=== PATIENT | female | born 1930 | race Caucasian/White ===

== ENCOUNTER 2016-12-26 11:18 | Emergency (ER) | payer MEDICARE, OTHER ==
[2016-12-26 11:42] VITALS: BMI 25.8
--- NOTE | 2016-12-26 11:49 | EDPRACDOC ---
- General Information Chief Complaint: Generalized Weakness Stated Complaint: GENERAL EVALUATION Time Seen by Provider: 12/26/16 11:33 Information Source: Patient, Family, Senior Living, [employer] Home Medications: Home Medications Oxybutynin [Ditropan] 5 mg PO 2100 09/14/14 Albuterol/Ipratropium Neb [Duoneb] 3 ml NEB Q8H 12/26/16 Calcium Carbonate/Vitamin D3 [Calcium 600 + Vit D 200 Tablet] 1 each PO MOTH 01/10 Cefdinir [Omnicef] 300 mg PO BID #20 cap 12/26/16 Cholecalciferol (Vitamin D3) [Vitamin D3] 2,000 unit PO 1700 12/26/16 Wfrlpuzaj-Gbgzrpgho-Voglfkun Suspension 5 ml PO QID 12/26/16 Ferrous Sulfate [Feosol] 325 mg PO 0900 12/26/16 Glucosam/Chond/Hyalu/Cf Borate [Move Free Joint Health Tablet] 1 each PO 0900 Guaifenesin-Dextromethorphan [Robitussin Dm] 10 ml PO Q6 PRN 12/26/16 House Supplement 1 each PO .TID W/MEALS 12/26/16 Hydroxyzine HCl 25 mg PO Q6H PRN 12/26/16 Levofloxacin [Levaquin] 750 mg PO DAILY 12/26/16 Levothyroxine Sodium [Levothroid] 50 mcg PO DAILY 12/26/16 Lorazepam [Ativan] 1 mg PO 2100 12/26/16 Meridian-3 Fatty Acids/Fish Oil [Fish Oil 1,000 mg Capsule] 1 each PO 0900 Oxycodone Immediate Release [Oxycodone Immediate Release (OxyIR)] 5 mg PO Q6H PRN 12/26/16 Pantoprazole Sodium [Protonix] 40 mg PO 0630 12/26/16 Rivaroxaban [Xarelto] 20 mg PO 0900 12/26/16 Sennosides/Docusate Sodium [Senokot-S Tablet] 1 each PO BID 12/26/16 Allergies/Adverse Reactions: Allergies Allergy/AdvReac Type Severity Reaction Status Date / Time Penicillins Allergy Rash-Genera Verified 12/26/16 11:40 lized - History of Present Illness Onset: weeks HPI: AT [place]; SEEN BY MID LEVEL THERE YESTERDAY. THOUGHT SHE MIGHT HAVE PNEUMONIA; SOME COUGH; WEARS OXYGEN AT ALL TIMES. IN LATE OCTOBER AT [facility] FOR SBO, ARF, PAF, HCAP; BEEN OUT NOW FOR SEVERAL WEEKS. SOME COUGH. FAMILY DOES NOT LIKE CURRENT SNF ; I TOLD THEM THEY WOULD NEED TO MAKE OTHER ARRANGEMENTS IF THEY FELT IT NECESSARY. Symptoms Started: Reports: Gradually Weakness: Bilateral: Generalized Symptoms: Reports: Weak Associated signs and symptoms:: Reports: None ED Past Medical History - History Reviewed Yes Nurses notes reviewed and agree except as marked - Patient Medical History Neurological History: Reports: Cerebrovascular Accident (2007) Cardiac History: Reports: Coronary Artery Disease, Hypercholesterolemia GI/ History: Reports: Gastroesophageal Reflux Musculoskeletal History: Reports: Arthritis Psychological History: Denies: Depression, Substance Use Disorder Surgical History: Reports: Hysterectomy, Other (Repair of abdominal aortic aneurysm, right rotator cuff repair. Abd surg) - Family Medical History Reports: Cancer (A sister who of metastatic breast cancer), Cardiac Disorders (Father had acute CO.). Denies: Hypertension, Diabetes, Stroke - Social Medical History Smoking Status: Current some day smoker Social History: Denies: Substance Use Disorder EDM Review of Systems - Review of Systems ROS Negative Except as Marked: Yes All systems reviewed and were negative except as marked - Physical Exam Constitutional: Alert (Awake), No apparent distress Oriented to: Time, Person, Place Last recorded Vital Signs: Last Vital Signs Temp 98.5 F 12/26/16 11:36 Pulse 87 12/26/16 11:36 Resp 16 12/26/16 11:36 BP 125/58 L 12/26/16 11:36 Pulse Ox 96 12/26/16 11:36 Oxygen Pulse Oxygen Saturation 96 O2 Device Oxygen Flow Rate Fraction of Inspired Oxygen ( FIO2) - HEENT Head: Normal ( normocephalic) Eye Exam: Normal (PERRL, EOMI, Sclera white) Oropharynx: Normal (Pharynx:Moist without exudate,Gums-no swelling) Tympanic Membrane: Normal ENT EAC: Normal TMJ: Normal Nose: No Symptoms Reported (septum midline) Neck: Normal (FROM, trachea at midline) - Respiratory/Cardiovascular Respiratory: Normal - CTA (BBS clear to auscultation without adventitious sounds ) Cardiovascular: Normal (RRR without murmur, gallop or rub) - GI Auscultation: Normal (NABS) Palpation: Normal (Soft,No rebound or guarding, non distended) Tenderness: Non tender Carolina's Sign: Negative - Musculoskeletal Back: Normal (Non-Tender) Extremities: Normal (Normal tone, Pulses 2+ No cyanosis or edema, FROM) - Integumentary Skin: Normal, Warm, Dry Lymphatics: Normal (no adenopathy) - Neurologic Memory Impaired: Normal Motor Function: Normal (Normal tone, Pulses 2+ No cyanosis or edema, FROM) Cranial Nerve: Normal (CN II-X11 intact sensation, strength 5/5) Cerebellar: Normal Mood Description: Normal Perception: Normal - Results 12/26/16 12:45 12/26/16 12:15 - EKG EKG #1 [place]: Normal Rhythm: NSR Block: None Hypertrophy: None ST: Normal Decision Time to Discharge: 12:49 - Departure Yes I personally saw and evaluated the patient. Disposition: Home Condition: Good Final Diagnosis: Attacks of weakness, UTI, CRI, ANEMIA Instructions: Urinary Tract Infection in Women (ED), Weakness (ED) Education/Counseling Given To: Patient, Family Member Education/Counseling Given Regarding: Diagnosis, Treatment, Prognosis Referrals: Aguilar Garcia MD [Primary Care Provider] - One Week Prescriptions: New Cefdinir [Omnicef] 300 mg PO BID #20 cap No Action Oxybutynin [Ditropan] 5 mg PO 2100 Sennosides/Docusate Sodium [Senokot-S Tablet] 1 each PO BID Pantoprazole Sodium [Protonix] 40 mg PO 0630 Oxycodone Immediate Release [Oxycodone Immediate Release (OxyIR)] 5 mg PO Q6H PRN PRN Reason: Pain Glucosam/Chond/Hyalu/Cf Borate [Move Free Joint Health Tablet] 1 each PO 0900 Levothyroxine Sodium [Levothroid] 50 mcg PO DAILY Levofloxacin [Levaquin] 750 mg PO DAILY Hydroxyzine HCl 25 mg PO Q6H PRN PRN Reason: Itching House Supplement 1 each PO .TID W/MEALS Meridian-3 Fatty Acids/Fish Oil [Fish Oil 1,000 mg Capsule] 1 each PO 0900 Guaifenesin-Dextromethorphan [Robitussin Dm] 10 ml PO Q6 PRN PRN Reason: Cough Ferrous Sulfate [Feosol] 325 mg PO 0900 Albuterol/Ipratropium Neb [Duoneb] 3 ml NEB Q8H Ivubrtaqk-Cvxomuszr-[id number] Suspension 5 ml PO QID Cholecalciferol (Vitamin D3) [Vitamin D3] 2,000 unit PO 1700 Lorazepam [Ativan] 1 mg PO 2100 Calcium Carbonate/Vitamin D3 [Calcium 600 + Vit D 200 Tablet] 1 each PO MOTH Rivaroxaban [Xarelto] 20 mg PO 0900
[2016-12-26 11:56] LABS: LEUKOCYTES/URINE 2+ (NEGATIVE); NITRITE/URINE NEG (NEGATIVE); RBC/URINE TNTC (0-5); URINE OCCULT BLOOD NEG (NEG/TRACE); WBC/URINE TNTC (0-5)
[2016-12-26 12:19] LABS: BEb -5.9 (+/- 2); TCO2 21.5 MMOL/L (23-27)
[2016-12-26 12:20] LABS: ABG Draw Site Right Brachial
--- NOTE | 2016-12-26 12:29 | DIRPT ---
CLINICAL DATA: Shortness of Breath, pneumonia EXAM: CHEST 2 VIEW COMPARISON: 12/13/2016 FINDINGS: Cardiomediastinal silhouette is stable. No pulmonary edema. Mild hyperinflation again noted. Streaky bilateral lower lobe atelectasis or residual infiltrate with improvement in aeration from prior exam. No pleural effusion. Osteopenia and mild degenerative changes thoracic spine. IMPRESSION: No pulmonary edema. Mild hyperinflation again noted. Streaky bilateral lower lobe atelectasis or residual infiltrate with improvement in aeration from prior exam. No pleural effusion. Electronically Signed By: Fabian Varner M.D. On: 12/26/2016 12:27
[2016-12-26] MEDS ORDERED: CEFDINIR 300 MG CAP PO ONE (12:40)
[2016-12-26 12:54] LABS: AUTOMATED BASOPHIL 0.9 % (0-2); AUTOMATED EOSINOPHIL 3.9 % (0-5); AUTOMATED LYMPH 8.5 % (17-44); AUTOMATED MONOCYTE 5.3 % (3-10); AUTOMATED NEUTROPHIL 81.4 % (45-76); MPV 8.3 fL (7.4-10.4)
[2016-12-26 12:56] LABS: CALC CORRECTED 9.8 MG/DL (8.4-10.2); CALCIUM 8.7 MG/DL (8.4-10.2); CREATININE 3.4 MG/DL (0.52-1.04); TOTAL PROTEIN 7.7 G/DL (6.3-8.2)
[2016-12-26 13:00] VITALS: TEMP 98.1
[2016-12-26 14:39] VITALS: BP 113/58; PULSE 76
== END 2016-12-26 14:25 | disposition home or self-care (01) ==
LOC: ED 11:18
DX: N39.0 Urinary tract infection, site not specified (principal); I12.9 Hypertensive chronic kidney disease with stage 1 through stage 4 chronic kidney disease, or unspecified chronic kidney disease; N18.9 Chronic kidney disease, unspecified; D64.9 Anemia, unspecified; R53.1 Weakness
CPT/HCPCS: 36415; 36600; 71020; 80053; 81001; 82803; 84484; 85025; 87040; 87077; 87086; 93005; 99284; A9270; J3490